=== PATIENT | female | born 1975 | race Two or more races ===

== ENCOUNTER → 2024-05-17 15:27 | Outpatient (REF) | payer OTHER, SELFPAY | LOC: RAD 15:27 | PROVIDERS: ATTENDING PHYSICIAN Physician Assistant Medical | DX: M25.511 Pain in right shoulder (principal); M25.561 Pain in right knee | CPT/HCPCS: 73030; 73564 ==

== ENCOUNTER → 2025-07-19 15:40 | Outpatient (REF) | payer OTHER, SELFPAY | LOC: HWRAD 15:40 | PROVIDERS: ATTENDING PHYSICIAN Family Medicine | DX: G89.29 Other chronic pain (principal); M54.50 Low back pain, unspecified | CPT/HCPCS: 72110 ==

== ENCOUNTER → 2025-08-31 08:30 | Outpatient (REF) | payer OTHER, SELFPAY | LOC: HWRAD 08:30 | PROVIDERS: ATTENDING PHYSICIAN Family Medicine | DX: S22.080A Wedge compression fracture of T11-T12 vertebra, initial encounter for closed fracture (principal); S32.020A Wedge compression fracture of second lumbar vertebra, initial encounter for closed fracture | CPT/HCPCS: 77080 ==

== ENCOUNTER 2025-09-15 06:26 | Outpatient (RCR) | payer OTHER, SELFPAY | END 2025-09-15 23:59 | disposition home or self-care (01) | LOC: RPT 06:26 | PROVIDERS: ATTENDING PHYSICIAN Family Medicine | DX: M54.59 Other low back pain (principal); G89.29 Other chronic pain; Z73.6 Limitation of activities due to disability | CPT/HCPCS: 97112; 97161; 97530 ==